=== PATIENT | male | born 1980 | race American Indian/Alaskan Native ===

== ENCOUNTER 2023-03-27 19:44 | Emergency (ER) | payer BC, SELFPAY ==
[2023-03-27] VITALS (21 sets, daily range): BP systolic 111–151; BP diastolic 68–90; PULSE 93–101; RESP 24; TEMP 36.4; O2SAT 93–98
--- NOTE | 2023-03-27 20:23 | CRLHL7_ITS ---
For Patients: As a result of the Century Cures Act, medical imaging exams and procedure reports are released immediately into your electronic medical record. You may view this report before your referring provider. If you have questions, please contact your health care provider. INDICATION: Trauma TECHNIQUE: CT head without contrast. COMPARISON: None. FINDINGS: Beam hardening artifact predominantly at the level of skullbase degrades fine detail evaluation throughout the exam. No intracranial hemorrhage. No discrete mass or mass effect. There is no midline shift. The basilar cisterns are patent. No hydrocephalus. The lira-white matter interface is otherwise preserved. No acute osseous abnormality. No extracalvarial soft tissue abnormality. The mastoid air cells are clear. Complete opacification of the right maxillary sinus with areas of intrinsic high attenuation. Opacification of the right anterior ethmoid air cells, right nasal ethmoidal recess and near complete opacification of the right frontal sinus. Constellation of findings favor underlying obstructive process. Associated dehiscence the right lamina papyracea and portions of the ethmoid air cell osseous structures. Recommend non emergent ENT consultation for further characterization. The visualized portions of the orbits and globes are unremarkable. IMPRESSION: 1. No acute intracranial process per unenhanced head CT given the above constraints. 2. Opacification of the right anterior ethmoid air cells, right nasal ethmoidal recess and near complete opacification of the right frontal sinus. Constellation of findings favor underlying obstructive process. Associated dehiscence the right lamina papyracea and portions of the ethmoid air cell osseous structures suggesting a chronic process. Recommend non emergent ENT consultation for further characterization. Please note that all CT scans at this facility use dose modulation, iterative reconstruction, and/or weight-based dosing when appropriate to reduce radiation dose to as low as reasonably achievable. Dictated by Jameel Tello MD @ 03/27/2023 9:32:20 PM (Electronically Signed)
--- NOTE | 2023-03-27 20:23 | CRLHL7_ITS ---
For Patients: As a result of the Cures Act, medical imaging exams and procedure reports are released immediately into your electronic medical record. You may view this report before your referring provider. If you have questions, please contact your health care provider. INDICATION: .fall, shoulder and neck pain TECHNIQUE: CT cervical spine without contrast. COMPARISON: None. FINDINGS: No acute fracture. No listhesis. Bony mineralization is age appropriate. No prevertebral soft tissue hematoma or swelling. No soft tissue abnormality is identified. Straightening of the normal cervical lordosis. Multilevel cervical spondylosis with disc osteophyte complexes causing at least effacement of the anterior thecal sac. No pathologically enlarged lymph nodes. IMPRESSION: Unremarkable cervical spine CT. Please note that all CT scans at this facility use dose modulation, iterative reconstruction, and/or weight-based dosing when appropriate to reduce radiation dose to as low as reasonably achievable. Dictated by Jameel Tello MD @ 03/27/2023 9:35:23 PM (Electronically Signed)
--- NOTE | 2023-03-27 20:23 | CRLHL7_ITS ---
For Patients: As a result of the Century Cures Act, medical imaging exams and procedure reports are released immediately into your electronic medical record. You may view this report before your referring provider. If you have questions, please contact your health care provider. INDICATION: fall right rib and right flank pain TECHNIQUE: CT chest, abdomen and pelvis acquired 135 milliliters Isovue 370 contrast. COMPARISON: None. FINDINGS: CHEST: Lungs and Airways: No mass or consolidation. No endoluminal lesion. Heart and Mediastinum: The visualized portions of the thyroid are normal. No axillary or supraclavicular lymphadenopathy. No mediastinal, hilar or retrocrural lymphadenopathy. Normal heart size. Normal caliber aorta. Pleura: The pleural spaces are normal. ABDOMEN: Liver: Normal enhancement. No focal suspicious hepatic lesions. Gallbladder and biliary: Normal gallbladder without radiopaque stone. Normal caliber bile ducts. Spleen: Normal size and enhancement. Pancreas: Normal enhancement without peripancreatic inflammatory changes or ductal dilatation. Adrenal glands: Normal adrenal glands. Kidneys and ureters: Normal enhancement. No radio-opaque calculi. No hydroureteronephrosis. GI tract: The stomach is relatively decompressed. Normal caliber small and large bowel loops. Normal appendix. Vascular structures: Normal caliber abdominal aorta. Lymph nodes: No lymphadenopathy in the abdomen or pelvis by size criteria. Peritoneum: No free air, free fluid, or focal drainable fluid collection. Small to moderate sized midline ventral fat containing supraumbilical hernia. PELVIS: Genitourinary system: Normal urinary bladder. SKELETAL STRUCTURES AND SOFT TISSUES: Lumbar spondylosis with disc osteophyte complexes causing at least effacement of the anterior thecal sac. No acute displaced osseous process. Transitional lumbosacral anatomy. IMPRESSION: 1. No acute traumatic process within the chest, abdomen, or pelvis. 2. No acute displaced osseous process. Please note that all CT scans at this facility use dose modulation, iterative reconstruction, and/or weight-based dosing when appropriate to reduce radiation dose to as low as reasonably achievable. Dictated by Jameel Tello MD @ 03/27/2023 9:53:02 PM (Electronically Signed)
--- NOTE | 2023-03-27 20:25 | ED.GENADULT ---
HPI - General Adult General Date Seen: 03/27/23 Chief complaint: Fall/Minor Trauma Stated complaint: Fall Time Seen by Provider: 03/27/23 19:49 History of Present Illness HPI narrative: This is a 42-year-old male who is brought to the ER today by EMS from home for evaluation of injuries after ground level falls. History is obtained primarily from the patient. However history limited by patient methamphetamine use He which he has a past medical history of methamphetamine abuse, peripheral neuropathy, and chronic shoulder pain. His primary care provider is at the [facility] in [place]. It is unclear what meds he is on, possibly gabapentin. He does report that he was using meth last night. He did not sleep last night. Apparently this morning he tripped and fell on a rug. It sounds like he injured his knee but was able to get up. He was able to go to work. 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 He does not have a car so he rode his bike to and from work. Riding home from work was try trace because of the snow and wet conditions. He slipped and fell on the ice after he got home. He landed with most of his weight on his right side and is having pain in his right flank, right ribs, and right back. His right side pain is his primary complaint. He says he does not think he hit his head. He does not think he injured his neck. He has multiple other sites of pain. He says he has a lot of pain in her shoulders but it turns out that is actually chronic and something that his primary care has been managing. As best as I can tell, his shoulder pain is not worse than normal. No new numbness or weakness down his arms. He also has some chronic burning in his feet that is worse than normal today. Apparently has some chronic neuropathy and foot burning. He also may have scraped his right knee when he fell on the rug this morning. He is 10 gentle and fragmented with his history. He does endorse using meth. When asked him how often he uses he is a bit vague. When I ask him if he uses every day, he says he uses it when he can get it. He was using last night. He got out of half-way less than a year ago. He had 6 months of pleural after that but is no longer on parole. He has 2 children. Neither of them live with him. He has a 5-year-old son who is currently in foster care. Apparently the child's mother was failing to pick him up from school while he was in half-way. He was taken from her care. She is apparently working on her own addiction and mental problems. He says they hope that he will be back with her soon. When I asked him if he is considering treatment for meth he refuses. Related Data Home Medications Medication Instructions Recorded Confirmed divalproex 250 mg tablet,extended 250 mg PO DAILY 03/27/23 03/27/23 release 24 hr divalproex 500 mg tablet,extended 500 mg PO DAILY 03/27/23 03/27/23 release 24 hr gabapentin 600 mg tablet PO 03/27/23 hydroxyzine pamoate 50 mg capsule 50 mg PO DAILY PRN 03/27/23 03/27/23 Allergies Allergy/AdvReac Type Severity Reaction Status Date / Time No Known Drug Allergies Allergy Verified 03/27/23 19:50 PFSH PFSH Social History Smoking Status: Current every day smoker How often do you have a drink containing alcohol: 2-3 times a week AUDIT-C Alcohol total score: 3 Non-prescribed substance use: amphetamines/methamphetamines Exam Narrative: Exam Narrative: Constitutional: Appears well-developed and well-nourished. Alert. He is conversant but a somewhat rambling tangential historian. He did endorse to his triage nurse that he is using methamphetamine last night. He says he did not sleep well last night because of the meth. Non toxic. HENT: Head: Atraumatic. No depressed skull fracture, Raccoon Eyes, Peres's sign, or hemotympanum. Face normal. TMs normal Nose: Nose normal. Mouth/Throat: Oral mucosa is clear and moist. no trismus. Pharynx normal. Tonsils symmetric. No tonsillar enlargement, erythema, or exudate. Eyes: Conjunctivae normal. EOM normal. Pupils equal, round, and reactive to light. No scleral icterus. Neck: Normal range of motion. Neck supple. No tracheal deviation present. Cardiovascular: Normal rate, regular rhythm. No gallop. No friction rub. No murmur heard. Symmetric radial artery pulses Pulmonary/Chest: Effort normal. No stridor. No respiratory distress. No wheezes. No rales. No rhonchi . Right posterolateral lower rib cage and right CVA/right upper quadrant tenderness. Abdominal: Soft. Bowel sounds normal. No distension. No mass. Right upper quadrant/right CVA tenderness. No rebound. No guarding. Musculoskeletal: RUE: Normal range of motion. No tenderness. No deformity LUE: Normal range of motion. No tenderness. No deformity RLE: Normal range of motion. No edema. No tenderness. No deformity LLE: Normal range of motion. No edema. No tenderness. No deformity No midline cervical, thoracic, lumbar spine tenderness or step-off. Neurological: Alert and oriented to person, place, and day of the week. However he has a somewhat rambling historian. Speech is somewhat rapid and thoughts are at times tangential. Endorses using methamphetamine last night, not sleeping well.. Normal strength. CN II-VII intact. No sensory deficit. GCS eye subscore is 4. GCS verbal subscore is 5. GCS motor subscore is 6. Normal coordination Skin: Skin is warm and dry. No rash noted. No pallor. Normal capillary refill. Psychiatric: Endorses using meth. Per history it sounds like he uses it fairly regularly, almost every day when he has the ability to get it. He is not interested in methamphetamine treatment. He thinks that the meth makes him feel better. He does have a job as a junior accountant bookkeeper. He got out of half-way perhaps 6 months ago and completed his parole. He has 2 children. His 5-year-old son was recently taken away from the child's mother's custody apparently because she also had her own substance abuse or mental health problems. Const: Vital Signs, click to edit/add: Vital Signs - 24 hr 03/27/23 19:50 03/27/23 19:51 03/27/23 19:52 Temperature 97.5 F L Pulse Rate 100 100 Pulse Rate [Pulse Oximeter] 96 Respiratory Rate 24 Blood Pressure 140/73 H Blood Pressure [Ri ght Upper Arm] 140/73 H Pulse Oximetry 97 98 97 Oxygen Delivery Me thod Room Air 03/27/23 20:01 03/27/23 20:32 03/27/23 21:09 Temperature Pulse Rate 97 Pulse Rate [Pulse Oximeter] Respiratory Rate Blood Pressure 134/74 131/74 137/77 Blood Pressure [Ri ght Upper Arm] Pulse Oximetry 94 Oxygen Delivery Me thod 03/27/23 21:10 03/27/23 21:15 03/27/23 21:30 Temperature Pulse Rate 95 97 97 Pulse Rate [Pulse Oximeter] Respiratory Rate Blood Pressure Blood Pressure [Ri ght Upper Arm] Pulse Oximetry 97 96 98 Oxygen Delivery Me thod 03/27/23 21:32 03/27/23 21:45 03/27/23 22:00 Temperature Pulse Rate 96 97 97 Pulse Rate [Pulse Oximeter] Respiratory Rate Blood Pressure 134/69 Blood Pressure [Ri ght Upper Arm] Pulse Oximetry 97 98 95 Oxygen Delivery Me thod 03/27/23 22:02 03/27/23 22:15 03/27/23 22:30 Temperature Pulse Rate 98 101 H 95 Pulse Rate [Pulse Oximeter] Respiratory Rate Blood Pressure 135/73 Blood Pressure [Ri ght Upper Arm] Pulse Oximetry 96 98 96 Oxygen Delivery Me thod 03/27/23 22:32 03/27/23 22:45 03/27/23 23:00 Temperature Pulse Rate 93 93 98 Pulse Rate [Pulse Oximeter] Respiratory Rate Blood Pressure 111/68 Blood Pressure [Ri ght Upper Arm] Pulse Oximetry 93 93 97 Oxygen Delivery Me thod 03/27/23 23:03 03/27/23 23:15 03/27/23 23:32 Temperature Pulse Rate 97 99 Pulse Rate [Pulse Oximeter] Respiratory Rate Blood Pressure 131/87 151/90 H Blood Pressure [Ri ght Upper Arm] Pulse Oximetry 97 96 Oxygen Delivery Me thod Course Vital Signs Vital signs: Initial Vital Signs Temperature 97.5 F L 03/27/23 19:50 Temperature Source Temporal Artery Scan 03/27/23 19:50 Pulse Rate 96 03/27/23 19:50 Pulse Rhythm Regular 03/27/23 19:50 Pulse Strength 3+ Normal 03/27/23 19:50 Respiratory Rate 24 03/27/23 19:50 Blood Pressure 140/73 H 03/27/23 19:50 Blood Pressure Mean 95 03/27/23 19:50 Pulse Oximetry 97 03/27/23 19:50 Oxygen Delivery Method Room Air 03/27/23 19:50 Vital Signs Temperature 97.5 F L 03/27/23 19:50 Pulse Rate 96 03/27/23 19:50 Respiratory Rate 24 03/27/23 19:50 Blood Pressure 140/73 H 03/27/23 19:50 Pulse Oximetry 97 03/27/23 19:50 Oxygen Delivery Method Room Air 03/27/23 19:50 Temperature 97.5 F L 03/27/23 19:50 Pulse Rate 99 03/27/23 23:15 Respiratory Rate 24 03/27/23 19:50 Blood Pressure 151/90 H 03/27/23 23:32 Pulse Oximetry 96 03/27/23 23:15 Oxygen Delivery Method Room Air 03/27/23 19:50 Medications Administered Medications: Discontinued Medications Generic Name Dose Route Start Last Admin Trade Name Ilanq PRN Reason Stop Dose Admin Ketorolac Tromethamine 15 mg 03/27/23 22:55 03/27/23 23:04 Ketorolac 15 Mg/Ml Inj IVP 03/27/23 22:56 15 mg ONCE ONE Administration Medical Decision Making MDM Narrative Medical decision making narrative: This is a 42-year-old male who presents to the ER today from his home by EMS. He called the ambulance tonight after he slipped and fell on the ice this afternoon. He could not get anyone else to give him a ride to the hospital for evaluation. He actually reports using meth last night, tripping on a rug this morning. He then we was able to go to work today. He rode his bicycle home from work and then slipped on the ice at his home this afternoon. His primary site of injury is in his right flank/lower ribs/right upper quadrant. He also has multiple other complaints of pain including shoulder tightness, foot burning, all of which are chronic for some time. He follows with his primary [facility] provider [facility] for that. Primary concern was for possible injury to the patient's ribs, liver, right kidney, or other internal injury. We did obtain CT chest/abdomen pelvis which is fortunately negative for any traumatic injury. Suspect that his right flank and rib pain is probably a contusion from falling. The patient was a very disorganized historian. Suspect likely related to methamphetamine use. However we did obtain head CT scan to make sure there was no intracranial hemorrhage. Head CT is normal. Because the patient was displaying signs of intoxication with math, I could not clear his cervical spine by clinical criteria. C-spine CT was obtained and is negative. We observe the patient here in the ER. He did have clearing of his sensorium upon recheck. He we were able to discuss his diagnoses. He was able to uses phone call for his own ride home. He did get into a verbal argument with someone while making is phone call but then calm down. He was polite and conversant with nurses at the time of discharge. We discussed the patient's methamphetamine use. He is not interested in treatment at this time. All the he was intoxicated with meth at the time of arrival, his sensorium cleared while here in the ER. At this point and the kidneys criteria for a 72 hour hold. Laboratory workup shows minimally elevated CK level which would be consistent with being up all night with math. He also has creatinine at 1.9. No known baseline. IV and p.o. fluids given here in the ER. At this point with clearing signs of methamphetamine use and improving sensorium, I do not think he needs to be admitted for rhabdomyolysis workup. Lab Data Labs: Lab Results 03/27/23 03/27/23 Range/Units 22:40 22:40 WBC 9.31 (4.50-11.00) K/uL RBC 4.79 (4.30-5.90) m/uL Hgb 12.9 L (13.5-17.5) gm/dL Hct 39.5 (37.0-53.0) % MCV 83 (80-100) fL MCH 27 (26-34) pg MCHC 33 (32-36) gm/dL RDW Coeff of Leonides 14.0 (11.5-15.5) % Plt Count 231 (140-440) K/uL Neut % (Auto) 60.5 (42.0-72.0) % Lymph % (Auto) 24.8 (20-44) % Gray % (Auto) 13.2 H (0.0-11.0) % Eos % (Auto) 0.8 (0.0-7.0) % Baso % (Auto) 0.5 (0.0-3.0) % Neut # (Auto) 5.63 (1.7-7.0) K/uL Lymph # (Auto) 2.31 (0.90-2.90) K/uL Gray # (Auto) 1.20 H (0.00-0.90) K/UL Eos # (Auto) 0.07 (0.00-0.50) K/uL Baso # (Auto) 0.05 (0.00-0.30) K/uL Abs Immat Gran (auto) 0.02 (0.00-0.30) K/uL Imm/Tot Granulo (auto) 0.2 % INR 1.01 (0.91-1.10) Sodium 136 (135-149) mmol/L Potassium 4.6 (3.6-5.1) mmol/L Chloride 103 (96-114) mmol/L Carbon Dioxide 22 (20-32) mmol/L Anion Gap 11 (7-15) mEq/L BUN 33 H (5-24) mg/dL Creatinine 1.9 H (0.5-1.5) mg/dL Estimated GFR 44 ml/min Glucose 148 H (60-115) mg/dL Lactate 0.9 (0.5-1.9) mmol/L Calcium 9.7 (8.4-10.6) mg/dL Total Bilirubin 1.1 (0.1-1.5) mg/dL AST 29 (12-35) U/L ALT 23 (4-50) U/L Alkaline Phosphatase 66 (40-150) U/L Total Creatine Kinase Cancelled 328 H Total Protein 8.2 (6.0-8.3) g/dL Albumin 4.8 (3.3-5.0) g/dL Imaging Data Cervical spine CT: Attestation: I have reviewed the pertinent imaging results. Radiologist's impression: IMPRESSION: Unremarkable cervical spine CT. CT scan - head: Attestation: I have reviewed the pertinent imaging results. Radiologist's impression: IMPRESSION: 1. No acute intracranial process per unenhanced head CT given the above constraints. 2. Opacification of the right anterior ethmoid air cells, right nasal ethmoidal recess and near complete opacification of the right frontal sinus. Constellation of findings favor underlying obstructive process. Associated dehiscence the right lamina papyracea and portions of the ethmoid air cell osseous structures suggesting a chronic process. Recommend non emergent ENT consultation for further characterization. CT chest/abdomen/pelvis: Attestation: I have reviewed the pertinent imaging results. Radiologist's impression: IMPRESSION: 1. No acute traumatic process within the chest, abdomen, or pelvis. 2. No acute displaced osseous process. Discharge Plan Discharge Clinical Impression: Abdominal wall pain in right flank, Methamphetamine abuse, Fall Patient Disposition: Home, Self-Care Condition: Stable Instructions: Contusion in Adults (ED), Methamphetamine Use Disorder (ED), Flank Pain (ED) Additional Instructions: Please follow-up with your regular doctor within 2-3 days for a recheck. Please Talk to your doctor about treatment for methamphetamine. Remember, if you would like information about how to quit using meth, you can come back to the ER any time. Four year side pain, we do not see any signs of serious internal injuries, broken bones, or internal bleeding. I suspect your side pain is probably a bruise or sprain from falling. Treat your pain as needed with Tylenol or ibuprofen. Return to the ER right away if you have worsening pain, trouble breathing, lightheadedness or fainting, bloody or black stools, blood in your urine, or any other problems. Prescriptions: No Action gabapentin 600 mg tablet PO hydroxyzine pamoate 50 mg capsule 50 mg PO DAILY PRN divalproex 500 mg tablet extended release 24 hr 500 mg PO DAILY divalproex 250 mg tablet extended release 24 hr 250 mg PO DAILY Follow Up/Referrals: Provider,Not a Local [Primary Care Provider] - Stand Alone Forms: [employer] Info Instructions
--- OUTSIDE RECORDS SUMMARY | 2023-03-27 20:43 | XMS_ITS | Patient Health Record ---
Author Name Unknown [facility] Address [address] [place] [address] Care Team Providers Care Rcp Name Role Phone Leia Mitchell Primary Care Provider Cam Nora Unavailable [phone] ALLERGIES No Known Allergies RESULTS Component Value Reference Range Notes LIPID PANEL Reviewed date:09/02/2022 09:27:53 AM Interpretation: Performing Lab:PAUL [facility] [id number] [facility] Medical CentereIL[address] Alfonso Mccord Notes/Report: 0 0 0 CHOLESTEROL, TOTAL 233 <200 mg/dL HDL CHOLESTEROL 47 > OR = 40 mg/dL TRIGLYCERIDES 420 <150 mg/dL If a non-fasting specimen was collected, consider repeat triglyceride testing on a fasting specimen if clinically indicated. Lynette et al. J. of Clin. Lipidol. 2015;9:129-169. LDL-CHOLESTEROL LDL cholesterol not calculated. Triglyceride levels greater than 400 mg/dL invalidate calculated LDL results. Reference range: <100 Desirable range <100 mg/dL for primary prevention; <70 mg/dL for patients with CHD or diabetic patients with > or = 2 CHD risk factors. LDL-C is now calculated using the Bart-Elis calculation, which is a validated novel method providing better accuracy than the Friedewald equation in the estimation of LDL-C. Bart WELLINGTON et al. CORRINE. 2013;310(19): 3697-9319 (http://education.IXI-Play.The Eye Tribe/faq/TGA428) CHOL/HDLC RATIO 5.0 <5.0 (calc) NON HDL CHOLESTEROL 186 <130 mg/dL (calc) For patients with diabetes plus 1 major ASCVD risk factor, treating to a non-HDL-C goal of <100 mg/dL (LDL-C of <70 mg/dL) is considered a therapeutic option. BASIC METABOLIC PANEL Reviewed date:09/02/2022 09:27:53 AM Interpretation: Performing Lab:PAUL [employer] [id number] [facility] NetworkRobert [facility], [place] OlxrWA[address] Alfonso Mccord Notes/Report: 0 0 0 GLUCOSE 237 65-99 mg/dL Fasting reference interval For someone without known diabetes, a glucose value >125 mg/dL indicates that they may have diabetes and this should be confirmed with a follow-up test. UREA NITROGEN (BUN) 29 7-25 mg/dL CREATININE 1.10 0.60-1.29 mg/dL EGFR 86 > OR = 60 mL/min/1.73m2 The eGFR is based on the CKD-EPI 2020 equation. To calculate the new eGFR from a previous Creatinine or Cystatin C result, go to https://www.kidney.org/profe ssionals/ kdoqi/gfr%5Fcalculator BUN/CREATININE RATIO 26 6-22 (calc) SODIUM 135 135-146 mmol/L POTASSIUM 5.2 3.5-5.3 mmol/L CHLORIDE 101 98-110 mmol/L CARBON DIOXIDE 25 20-32 mmol/L CALCIUM 10.0 8.6-10.3 mg/dL HEMOGLOBIN A1c Reviewed date:09/02/2022 09:27:53 AM Interpretation: Performing Lab:PAUL [employer] Oapo4262 Fu[facility] NetworkRobert [facility], [facility] ClinicAwwuUX[address] Alfonso Mccord Notes/Report: 0 0 0 HEMOGLOBIN A1c 11.5 <5.7 % of total Hgb For someone without known diabetes, a hemoglobin A1c value of 6.5% or greater indicates that they may have diabetes and this should be confirmed with a follow-up test. For someone with known diabetes, a value <7% indicates that their diabetes is well controlled and a value greater than or equal to 7% indicates suboptimal control. A1c targets should be individualized based on duration of diabetes, age, comorbid conditions, and other considerations. Currently, no consensus exists regarding use of hemoglobin A1c for diagnosis of diabetes for children. NO COLLECTION DATE RECEIVED. WE HAVE USED THE DATE THE SPECIMEN WAS RECEIVED BY THIS LABORATORY THE COLLECTION DATE. IF THIS IS INCORRECT, PLEASE CONTACT CLIENT SERVICES. PHONE NUMBER: [phone] Hemoglobin A1c Reviewed date:10/28/2022 10:48:35 AM Interpretation: Performing Lab: Notes/Report: A1c Hemoglobin 12.0 4.0 - 7.0 % Hemoglobin A1c Reviewed date:12/30/2022 12:12:22 PM Interpretation: Performing Lab: Notes/Report: A1c Hemoglobin 11.9 4.0 - 7.0 % Lipid Panel Reviewed date:12/30/2022 12:12:44 PM Interpretation: Performing Lab: Notes/Report: Cholesterol, Total 181 <200 - mg/dL HDL Cholesterol 34 LDL Cholesterol Calc 108 <100 - mg/dL Triglycerides 196 <150 - mg/dL nHDLc 147 <130 - mg/dL TC/H 5.3 2.8 - 6.6 VLDL Cholesterol Akash Basic Metabolic Panel Reviewed date:12/30/2022 12:13:11 PM Interpretation: Performing Lab: Notes/Report: Glucose, Serum 339 70 - 99 mg/dL BUN 20 10 - 26 mg/dL Calcium, Serum 10.1 8.5 - 10.5 mg/dL Creatinine, Serum 1.1 0.6 - 1.3 mg/dL Sodium, Serum 135 135 - 145 mEq/L Potassium, Serum 4.8 3.5 - 5.3 mEq/L Chloride, Serum 102 95 - 105 mEq/L Carbon Dioxide, Total 27 23 - 29 mEq/L BUN/Creatinine Ratio CBC (H/H, RBC, INDICES, WBC, PLT) Reviewed date:12/31/2022 10:33:12 AM Interpretation: Performing Lab:CB, [facility] [id number] [facility] UnitteRobert [facility], [facility] ClinicGxxvRR[address] Alfonso Mccord Notes/Report: 0 WHITE BLOOD CELL COUNT 11.0 3.8-10.8 Thousand/ uL RED BLOOD CELL COUNT 5.66 4.20-5.80 Million/uL HEMOGLOBIN 15.5 13.2-17.1 g/dL HEMATOCRIT 47.2 38.5-50.0 % MCV 83.4 80.0-100.0 fL MCH 27.4 27.0-33.0 pg MCHC 32.8 32.0-36.0 g/dL RDW 12.6 11.0-15.0 % PLATELET COUNT 244 140-400 Thousand/uL MPV 11.7 7.5-12.5 fL Hemoglobin A1c Reviewed date:02/01/2023 09:08:18 AM Interpretation: Performing Lab: Notes/Report: A1c Hemoglobin 11.2 4.0 - 7.0 % LIPID PANEL Reviewed date:02/19/2023 01:57:27 PM Interpretation: Performing Lab:PAUL [employer] [id number] Fuze NetworkRobert [facility], [facility] HospitalXzipTU[address] Alfonso Mccord Notes/Report: 0 0 0 0 0 0 CHOLESTEROL, TOTAL 254 <200 mg/dL HDL CHOLESTEROL 61 > OR = 40 mg/dL TRIGLYCERIDES 229 <150 mg/dL If a non-fasting specimen was collected, consider repeat triglyceride testing on a fasting specimen if clinically indicated. Lynette et al. J. of Clin. Lipidol. 2015;9:129-169. LDL-CHOLESTEROL 154 Reference range: <100 Desirable range <100 mg/dL for primary prevention; <70 mg/dL for patients with CHD or diabetic patients with > or = 2 CHD risk factors. LDL-C is now calculated using the Bart-Elis calculation, which is a validated novel method providing better accuracy than the Friedewald equation in the estimation of LDL-C. Bart WELLINGTON et al. CORRINE. 2013;310(19): 9628-6510 (http://education.IXI-Play.The Eye Tribe/faq/KTN787) CHOL/HDLC RATIO 4.2 <5.0 (calc) NON HDL CHOLESTEROL 193 <130 mg/dL (calc) For patients with diabetes plus 1 major ASCVD risk factor, treating to a non-HDL-C goal of <100 mg/dL (LDL-C of <70 mg/dL) is considered a therapeutic option. COMPREHENSIVE METABOLIC PANE L Reviewed date:02/19/2023 01:57:28 PM Interpretation: Performing Lab:PAUL [facility] [employer] [id number] rag & boneteRobert Wood Johnson [facility], [facility] ClinicAvilAB[address] Alfonso Mccord Notes/Report: 0 0 0 0 0 0 GLUCOSE 201 65-99 mg/dL Fasting reference interval For someone without known diabetes, a glucose value >125 mg/dL indicates that they may have diabetes and this should be confirmed with a follow-up test. UREA NITROGEN (BUN) 35 7-25 mg/dL CREATININE 1.14 0.60-1.29 mg/dL EGFR 82 > OR = 60 mL/min/1.73m2 BUN/CREATININE RATIO 31 6-22 (calc) SODIUM 135 135-146 mmol/L POTASSIUM 4.9 3.5-5.3 mmol/L CHLORIDE 101 98-110 mmol/L CARBON DIOXIDE 26 20-32 mmol/L CALCIUM 9.9 8.6-10.3 mg/dL PROTEIN, TOTAL 7.9 6.1-8.1 g/dL ALBUMIN 4.6 3.6-5.1 g/dL GLOBULIN 3.3 1.9-3.7 g/dL (calc) ALBUMIN/GLOBULIN RATIO 1.4 1.0-2.5 (calc) BILIRUBIN, TOTAL 0.6 0.2-1.2 mg/dL ALKALINE PHOSPHATASE 117 36-130 U/L AST 19 10-40 U/L ALT 29 9-46 U/L CBC (INCLUDES DIFF/PLT) Reviewed date:02/19/2023 01:57:28 PM Interpretation: Performing Lab:PAUL [employer] [employer], Liberty GlobalPtgdWB[address] Alfonso Mccord Notes/Report: 0 0 0 0 0 0 WHITE BLOOD CELL COUNT 8.3 3.8-10.8 Thousand/ uL RED BLOOD CELL COUNT 5.87 4.20-5.80 Million/uL HEMOGLOBIN 15.9 13.2-17.1 g/dL HEMATOCRIT 47.6 38.5-50.0 % MCV 81.1 80.0-100.0 fL MCH 27.1 27.0-33.0 pg MCHC 33.4 32.0-36.0 g/dL RDW 13.0 11.0-15.0 % PLATELET COUNT 232 140-400 Thousand/uL MPV 11.7 7.5-12.5 fL ABSOLUTE NEUTROPHILS 5113 [id number] cells/uL ABSOLUTE LYMPHOCYTES 2191 850-3900 cells/uL ABSOLUTE MONOCYTES 764 200-950 cells/uL ABSOLUTE EOSINOPHILS 125 15-500 cells/uL ABSOLUTE BASOPHILS 108 0-200 cells/uL NEUTROPHILS 61.6 LYMPHOCYTES 26.4 MONOCYTES 9.2 EOSINOPHILS 1.5 BASOPHILS 1.3 HEMOGLOBIN A1c Reviewed date:02/19/2023 01:57:28 PM Interpretation: Performing Lab:PAUL Altierree1355 [employer], Liberty GlobalJhqoPR[address] Alfonso Mccord Notes/Report: 0 0 0 0 0 0 HEMOGLOBIN A1c 11.3 <5.7 % of total Hgb For someone without known diabetes, a hemoglobin A1c value of 6.5% or greater indicates that they may have diabetes and this should be confirmed with a follow-up test. For someone with known diabetes, a value <7% indicates that their diabetes is well controlled and a value greater than or equal to 7% indicates suboptimal control. A1c targets should be individualized based on duration of diabetes, age, comorbid conditions, and other considerations. Currently, no consensus exists regarding use of hemoglobin A1c for diagnosis of diabetes for children. VITAMIN D,25-OH,TOTAL,IA Reviewed date:02/19/2023 01:57:28 PM Interpretation: Performing Lab:PAUL Zoutons[facility] [employer], SensicsNbyaVH[address] Alfonso Mccord Notes/Report: 0 0 0 0 0 0 VITAMIN D,25-OH,TOTAL,IA 12 30-100 ng/mL Vitamin D Status 25-OH Vitamin D: Deficiency: <20 ng/mL Insufficiency: 20 - 29 ng/mL Optimal: > or = 30 ng/mL For 25-OH Vitamin D testing on patients on D2-supplementation and patients for whom quantitation of D2 and D3 fractions is required, the QuestAssureD(TM) 25-OH VIT D, (D2,D3), LC/MS/MS is recommended: order code 52825 (patients >2yrs). See Note 1 Note 1 For additional information, please refer to http://education.Veriana Networks.The Eye Tribe/faq/WED856 (This link is being provided for informational/ educational purposes only.) TSH W/REFLEX TO FT4 Reviewed date:02/19/2023 01:57:28 PM Interpretation: Performing Lab:PAUL Zout[facility]-[employer], SensicsBjnyEJ[address] Alfonso Mccord Notes/Report: 0 0 0 0 0 0 TSH W/REFLEX TO FT4 2.29 0.40-4.50 mIU/L CBC (H/H, RBC, INDICES, WBC, PLT) Reviewed date:06/23/2022 02:54:03 PM Interpretation: Performing Lab:PAUL [address], SensicsLauuIR[address] Alfonso Mccord Notes/Report: 0 WHITE BLOOD CELL COUNT 6.7 3.8-10.8 Thousand/ uL RED BLOOD CELL COUNT 4.75 4.20-5.80 Million/uL HEMOGLOBIN 13.3 13.2-17.1 g/dL HEMATOCRIT 40.6 38.5-50.0 % MCV 85.5 80.0-100.0 fL MCH 28.0 27.0-33.0 pg MCHC 32.8 32.0-36.0 g/dL RDW 12.8 11.0-15.0 % PLATELET COUNT 219 140-400 Thousand/uL MPV 11.2 7.5-12.5 fL Basic Metabolic Panel Reviewed date:06/19/2022 02:52:21 PM Interpretation: Performing Lab: Notes/Report: Glucose, Serum 262 70 - 99 mg/dL BUN 30 10 - 26 mg/dL Calcium, Serum 9.9 8.5 - 10.5 mg/dL Creatinine, Serum 1.3 0.6 - 1.3 mg/dL Sodium, Serum 144 135 - 145 mEq/L Potassium, Serum 6.1 3.5 - 5.3 mEq/L Chloride, Serum 105 95 - 105 mEq/L Carbon Dioxide, Total 26 23 - 29 mEq/L BUN/Creatinine Ratio Lipid Panel Reviewed date:06/19/2022 02:51:58 PM Interpretation: Performing Lab: Notes/Report: Cholesterol, Total 233 <200 - mg/dL HDL Cholesterol 45 LDL Cholesterol Calc N/A <100 - mg/dL Triglycerides 486 <150 - mg/dL nHDLc 187 <130 - mg/dL TC/H 5.2 2.8 - 6.6 VLDL Cholesterol Akash Hemoglobin A1c Reviewed date:06/19/2022 02:51:27 PM Interpretation: Performing Lab: Notes/Report: A1c Hemoglobin 8.6 4.0 - 7.0 % REASON FOR REFERRAL Reason Case management, ind ividual therapy, and [facility] Diagnosis 1 Autism (F84.0) Diagnosis 2 ADHD (attention defi cit hyperactivity disorder), combined type (F90.2) Diagnosis 3 Post traumatic stres s disorder (F43.10) Diagnosis 4 Mild depression (F32 .0) Diagnosis 5 Developmental disord er of scholastic skills, unspecified (F81.9) Diagnosis 6 Methamphetamine abus e (F15.10) Referral Organization [facility] Referring Provider First Name Leia Referring Provider Last Name Mitchell Referring Provider Speciality Family Pra ctice Referred Provider [facility] [place] Referred Provider Specialty Social servi alma department occupational therapist General Notes Referral to include med management, office consult, labs, diagnostic imaging, PT/OT, surgical intervention, therapy, and secondary referrals. Referral Priority Routine MEDICATIONS Medication SIG (Take, Route, Frequency, Duration) Notes Start Date End Date Status Amitriptyline HCl 10 MG 1 tablet at bedt joey Orally Once a day for 90 days 03/24/2023 Active FreeStyle Rafa 14 Day Sensor - Apply one sensor as directed every 14 days for 28 days Active Victoza 18 MG/3ML 1.8mg Subcutaneous once daily for 30 days 12/30/2022 04/23/2023 Active Cholecalciferol 1.25 MG (51519 UT) 1 capsule Orally once weekly for 60 days 02/25/2023 04/26/2023 Active Levemir FlexTouch 100 UNIT/ML 20 units Subcutaneous once daily for 30 days 02/12/2023 Active Divalproex Sodium ER 500 MG 1 tablet Orally Once a day at bedtime for 30 days Active Gabapentin 600 MG TAKE 1 TABLET BY MOUTH TWICE DAILY Active Ketoconazole Not-Riley ing Meloxicam 7.5 MG 1 tablet Orally Once a day for 90 days Not-Taking FreeStyle Rafa Thorofare - use as directed 4 times perday as needed for 30 days Active hydrOXYzine Pamoate 50 MG TAKE 1 CAPSULE BY MOUTH EVERY DAY AT BEDTIME NEEDED for 30 Active NovoLOG FlexPen 100 UNIT/ML as directed Subcutaneous with meals for 60 days Active DULoxetine HCl 60 MG 1 capsule Orally Twice a day Active Invokana 100 MG 1 tablet before the first meal of the day Orally Once a day 02/12/2023 Active Atorvastatin Calcium 40 MG 1 tablet Orally Once a day Active Lisinopril 40 MG 1 tablet Orally Once a day Active FreeStyle Rafa 14 Day Sensor - Apply one sensor as directed every 14 days for 28 days Active Pioglitazone HCl 45 MG 1 tablet Orally O nce a day Active Levemir FlexTouch 100 UNIT/ML 20 units at bedtime, increase 2 units every 3 days if fasting sugar is >150 Subcutaneous once for 75 days Active Alpha Lipoic Acid 200 MG 3 capsules Oral ly Once a day for 30 days Active Divalproex Sodium ER 250 MG TAKE 1 TABLET BY MOUTH EVERY DAY AT BEDTIME for 30 Not-Taking IMMUNIZATIONS Vaccine Route Administration Date Status Comme nts COVID-19, Moderna Vaccine IM Intramuscular 05/13/2020 Admi nistered COVID-19, Moderna Vaccine IM Intramuscular 02/21/2021 Admi nistered SOCIAL HISTORY Sex Assigned At : Social History Observation Description Sex Assigned At Unknown PROBLEMS Problem Type ICD Code Onset Dates Problem Status W/U Status Risk SNOMED Code Notes Problem 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) Active confirmed 87210643 Problem Type 2 diabetes mellitus with unspecified complications (E11.8) Active confirmed Disorder due to type 2 diabetes mellitus (549230695) Problem Moderate intellectual disabilities (F71) Active confirmed 82699109 FSIQ 6 4 Problem Developmental disorder of scholastic skills, unspecified (F81.9) Active confirmed Developmental disorder of scholastic skill (2576742) Problem Vitamin D deficiency (E55.9) Active confirmed 42744735 Problem Essential hypertension (I10) Active confirmed 73743357 Problem Insomnia, unspecified type (G47.00) Active confirmed 990437149 Problem Hyperlipidemia, unspecified hyperlipidemia type (E78.5) Active confirmed 41352674 Problem Anxiety disorder, unspecified type (F41.9) Active confirmed 502526802 Problem Cigarette nicotine dependence without complication (F17.210) Active confirmed 82150878 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) Active confirmed Long-term current use of insulin (404367110) Problem Diabetic polyneuropathy associated with type 2 diabetes mellitus (E11.42) Active confirmed 400461935 Problem Post traumatic stress disorder (F43.10) Active confirmed Posttraumatic stress disorder (54560926) Problem ADHD (attention deficit hyperactivity disorder), combined type (F90.2) Active confirmed 12118165 Problem Mild depression (F32.0) Active confirmed Mild depression (071118128) Problem 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) Active confirmed 575338708 Problem 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) Active confirmed 993761411 Problem Cigarette nicotine dependence in remission (F17.211) Active confirmed 275426473 Problem Mood disorder (F39) Active confirmed 22579571 Problem Autism (F84.0) Active confirmed Autism (88262595) Problem Post traumatic stress disorder (PTSD) (F43.10) Active confirmed 42739643 Problem Diabetic neuropathy, painful (E11.40) Active confirmed Diabetic peripheral neuropathy associated with type 2 diabetes mellitus (8379872615541) Problem Learning disorder (F81.9) Active confirmed 9278544 Math 3rd grade level Spelling and reading 1st grade level Problem Autism spectrum disorder requiring substantial support (level 2) (F84.0) Active confirmed 37496480 VITAL SIGNS Heart Rate 95 /min 03/24/2023 Temperature 98 degrees Fahrenheit 03/24/2023 Respiratory Rate 18 /min 03/24/2023 Oximetry 98 % 03/24/2023 Blood pressure diastolic 80 mm Hg 03/24/2023 Height 71 in 03/24/2023 Blood pressure systolic 128 mm Hg 03/24/2023 Weight 270 lbs 03/24/2023 BMI 37.65 kg/m2 03/24/2023 Encounters Encounter Location Date Provider Diagnosis [address] [place] [address] 06/02/[address] [place] [address] 06/12/[address] [place] [address] 08/04/[address] [place] [address] 08/25/[address] [place] [address] 03/24/2023 Nora Levy Diabetic polyneuropa thy associated with type 2 diabetes mellitus E11.42 ; Type 2 diabetes mellitus with unspecified complications E11.8 ; ADHD (attention deficit hyperactivity disorder), combined type F90.2 ; Autism spectrum disorder requiring substantial support (level 2) F84.0 ; Post traumatic stress disorder (PTSD) F43.10 ; Depression, unspecified depression type F32.A ; Vitamin D deficiency E55.9 ; Essential hypertension I10 and Hyperlipidemia, unspecified hyperlipidemia type E78.[address] [place] [address] 06/19/2022 Leia Mitchell Encounter for examination for insurance purposes Z02.6 ; Type 2 diabetes mellitus with unspecified complications E11.8 ; Diabetic neuropathy, painful E11.40 ; Mood disorder F39 ; Essential hypertension I10 and Hyperlipidemia, unspecified hyperlipidemia type E78.[address] [address] 08/28/2022 Leia Mitchell Type 2 diabetes demetra itus with unspecified complications E11.8 ; Diabetic neuropathy, painful E11.40 ; Mood disorder F39 ; Essential hypertension I10 and Hyperlipidemia, unspecified hyperlipidemia type E78.[address] [address] 10/28/2022 Leia Mitchell Type 2 diabetes demetra itus with unspecified complications E11.8 ; Diabetic neuropathy, painful E11.40 ; Mood disorder F39 ; Essential hypertension I10 and Hyperlipidemia, unspecified hyperlipidemia type E78.[address] [address] 12/30/2022 Leia Mitchell Encounter for examination for insurance purposes Z02.6 ; Type 2 diabetes mellitus with unspecified complications E11.8 ; Diabetic neuropathy, painful E11.40 ; Mood disorder F39 ; Essential hypertension I10 ; Hyperlipidemia, unspecified hyperlipidemia type E78.5 ; Methamphetamine abuse in remission F15.11 and Cigarette nicotine dependence without complication F17.[address] [address] 01/27/2023 Nora Levy Anxiety disorder, unspecified type F41.9 ; Mood disorder F39 ; Depression, unspecified depression type F32.A ; PTSD (post-traumatic stress disorder) F43.10 ; Substance use disorder F19.90 ; Cognitive impairment R41.89 and Type 2 diabetes mellitus with unspecified complications E11.[address] [address] 02/12/2023 Nora Levy ADHD (attention defi cit hyperactivity disorder), combined type F90.2 ; Autism spectrum disorder requiring substantial support (level 2) F84.0 ; Post traumatic stress disorder (PTSD) F43.10 ; Moderate intellectual disabilities F71 ; Learning disorder F81.9 and Methamphetamine abuse F15.[address] [address] 02/12/2023 Leia Mitchell Type 2 diabetes demetra itus with unspecified complications E11.8 ; Essential hypertension I10 ; Hyperlipidemia, unspecified hyperlipidemia type E78.5 ; Autism spectrum disorder requiring substantial support (level 2) F84.0 ; ADHD (attention deficit hyperactivity disorder), combined type F90.2 ; Learning disorder F81.9 and Post traumatic stress disorder (PTSD) F43.[address] [place] [address] 02/25/2023 Nora Levy ADHD (attention defi cit hyperactivity disorder), combined type F90.2 ; Autism spectrum disorder requiring substantial support (level 2) F84.0 ; Post traumatic stress disorder (PTSD) F43.10 ; Depression, unspecified depression type F32.A ; Learning disorder F81.9 ; Vitamin D deficiency E55.9 and Methamphetamine abuse F15.[address] [place] [address] 06/02/2022 Leia Stephen Type 2 diabetes demetra itus with unspecified complications E11.[address] [address] 06/02/2022 Leia Mitchell Type 2 diabetes demetra itus with unspecified complications E11.8 ; Mood disorder F39 ; Essential hypertension I10 and Hyperlipidemia, unspecified hyperlipidemia type E78.[address] [place] [address] 06/19/[address] [place] [address] 06/23/[address] [place] [address] 07/07/[address] [place] [address] 08/28/2022 Leia Mitchell Diabetic neuropathy, painful E11.[address] [place] [address] 09/02/[address] [place] [address] 12/31/[address] [place] [address] 02/25/2023 Nora Levy ASSESSMENTS Encounter Date Diagnosis Assessment Notes Treatment Notes Treatment Clinical Notes 06/02/2022 Type 2 diabetes mellitus with unspecified complications (ICD-10 - E11.8) 06/02/2022 Type 2 diabetes mellitus with unspecified complications (ICD-10 - E11.8) 06/19/2022 Encounter for examination for insurance purposes (ICD-10 - Z02.6) Discussed patient lab results. A1C 8.6% and has known DM. Patient is aware the goal is <7.0%. Cholesterol levels are high. He knows he needs to work on his portions. Discussed Mediterranean Diet and healthy eating habits. Encourage regular exercise. Goal is 45-50 minutes of aerobic exercise 4-5 times per week. Start slowly and increase by 10% weekly. [facility] Preventive Visit Physician Verification form is completed and faxed to [facility] 08/28/2022 Type 2 diabetes mellitus with unspecified complications (ICD-10 - E11.8) Had a long discussion with pt about controlling blood sugars and portion control. If he continues the way he is, he will need to adjust his insulin. Continue to increase insulin doses as needed. Recommend patient monitor more closely. Goal A1C <7.0% Discussed with patient uncontrolled DM and the complications it can come with. Encouraged to take insulin as prescribed. F/u in 2 months. Labs repeated today. 08/28/2022 Diabetic neuropathy, painful (ICD-10 - E11.40) 08/28/2022 Diabetic neuropathy, painful (ICD-10 - E11.40) 10/28/2022 Type 2 diabetes mellitus with unspecified complications (ICD-10 - E11.8) Again emphasized controlling blood sugars and portion control. Encouraged to cut down on the sugary drinks. Adjusted insulin today to 20 units levemir and adjust novolog based on what he eats. Continue to increase insulin doses as needed. Recommend patient monitor more closely. He plans to go lemon picker his rafa after this visit. Goal A1C <7.0%. Last A1C in August 11.5% and today is higher at 12%. Discussed with patient uncontrolled DM and the complications it can come with. Encouraged to take insulin as prescribed. F/u in 2 months and will complete his [facility] wellness 12/30/2022 Encounter for examination for insurance purposes (ICD-10 - Z02.6) Discussed patient lab results. A1C 12%. Pt has not made any improvements since last visit. Plan to adjust his medications today. Cholesterol levels indicate fair control on atorvastatin 40mg. Would like LDL <70.Discussed Mediterranean Diet and healthy eating habits. Encourage continued regular exercise. Goal is 45-50 minutes of aerobic exercise 4-5 times per week. Start slowly and increase by 10% weekly. [facility] Preventive Visit Physician Verification form is completed and faxed to [facility] 01/27/2023 Anxiety disorder, unspecified type (ICD-10 - F41.9) 02/12/2023 ADHD (attention deficit hyperactivity disorder), combined type (ICD-10 - F90.2) 02/12/2023 Autism spectrum disorder requiring substantial support (level 2) (ICD-10 - F84.0) We discussed medication options with patient to include mood stabilizers, change in antidepressants, or antipsychotic type medication. At this time we are going to adjust his duloxetine dose so that he is taking his total dose 1 time a day to see if this helps with his sleep disruption. And we are going to add Depakote ER 250 mg to see if this helps both with mood stabilization and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
[2023-03-27 22:46] LABS: Lactate* 0.9 mmol/L (0.5-1.9)
[2023-03-27 22:51] LABS: Basophils Absolute Auto 0.05 K/uL (0.00-0.30); Basophils Percent Auto 0.5 % (0.0-3.0); Eosinophils Absolute Auto 0.07 K/uL (0.00-0.50); Eosinophils Percent Auto 0.8 % (0.0-7.0); Hematocrit 39.5 % (37.0-53.0); Hemoglobin* 12.9 gm/dL (13.5-17.5); Immature Granulocytes Abs Auto 0.02 K/uL (0.00-0.30); Immature Granulocytes Pct Auto 0.2 %; Lymphocytes Absolute Auto 2.31 K/uL (0.90-2.90); Lymphocytes Percent Auto 24.8 % (20-44); Mean Corpuscular HGB Conc 33 gm/dL (32-36); Mean Corpuscular Hemoglobin 27 pg (26-34); Mean Corpuscular Volume 83 fL (80-100); Monocytes Percent Auto 13.2 % (0.0-11.0); Neutrophils Absolute Auto 5.63 K/uL (1.7-7.0); Neutrophils Percent Auto 60.5 % (42.0-72.0); Platelet Count* 231 K/uL (140-440); Red Blood Count 4.79 m/uL (4.30-5.90); White Blood Count* 9.31 K/uL (4.50-11.00)
[2023-03-27 22:54] LABS: Slide Review Reflex No
[2023-03-27] MEDS: KETOROLAC 15 MG/ML inj IVP (23:04)
[2023-03-27 23:08] LABS: Albumin* 4.8 g/dL (3.3-5.0); Chloride* 103 mmol/L (96-114); Potassium* 4.6 mmol/L (3.6-5.1); Sodium* 136 mmol/L (135-149)
[2023-03-27 23:10] LABS: Creatinine* 1.9 mg/dL (0.5-1.5)
[2023-03-27 23:11] LABS: Alanine Aminotransferase* 23 U/L (4-50); Alkaline Phosphatase* 66 U/L (40-150); Anion Gap 11 mEq/L (7-15); Aspartate Amino Transferase* 29 U/L (12-35); Bilirubin Total* 1.1 mg/dL (0.1-1.5); Blood Urea Nitrogen* 33 mg/dL (5-24); Carbon Dioxide* 22 mmol/L (20-32); Creatine Kinase* 328 U/L (54-186); Estimated Glomerular Filt Rate 44 ml/min; Glucose* 148 mg/dL (60-115); Total Protein* 8.2 g/dL (6.0-8.3)
[2023-03-27 23:12] LABS: Calcium* 9.7 mg/dL (8.4-10.6)
[2023-03-27 23:20] LABS: INR 1.01 (0.91-1.10); Prothrombin Time 13.9 Seconds
== END 2023-03-28 00:20 | disposition home or self-care (01) ==
PROVIDERS: Emergency Provider Emergency Medicine
DX: R10.31 Right lower quadrant pain (principal); F15.10 Other stimulant abuse, uncomplicated; W00.9XXA Unspecified fall due to ice and snow, initial encounter
CPT/HCPCS: 36415; 70450; 71260; 72125; 74177; 80053; 82550; 83605; 85025; 85610; 96374; 99284; J1885; Q9967